=== PATIENT | male | born 1945 | race Caucasian/White ===

== ENCOUNTER 2018-01-22 10:30 | Day surgery (SDC) | payer MEDICARE ==
[~2018-01-22] VITALS: Ht 170.2 cm; Wt 77.8 kg
[~2018-01-22 10:30] MED LIST: ASCO10007 PO; ASPI-555 PO; FLUO-126 PO; GABA-531 PO; LACT1CAP78 PO; LISI1TAB11 PO; MULT-1258 PO; PHYT100T PO; SODIUM CHLORIDE 0.9% 1000ML 1,000 ML IV ONE
[2018-01-22 10:34] VITALS: BP 132/83
[2018-01-22] MEDS ORDERED: MIDAZOLAM HCL 1 MG/ML 2ML VIAL ONE (11:01)
[2018-01-22] MEDS ORDERED: MEPERIDINE-PF 50 MG/ML SYG ONE (11:01)
[2018-01-22 11:26] VITALS: BP 110/66
== END 2018-01-22 12:05 | disposition home or self-care (01) ==
LOC: ENDO 10:30 → DAH 10:30 → ENDO 12:05
PROVIDERS: ATTEND Internal Medicine Gastroenterology
DX: Z09 Encounter for follow-up examination after completed treatment for conditions other than malignant neoplasm (principal); K21.9 Gastro-esophageal reflux disease without esophagitis; I10 Essential (primary) hypertension; Z79.899 Other long term (current) drug therapy; Z86.010 Personal history of colon polyps; Z79.82 Long term (current) use of aspirin
CPT/HCPCS: A4606; G0105; J2175; J2250; J7030